=== PATIENT | male | born 1995 | race African-American/Black ===

== ENCOUNTER 2024-08-09 09:31 | Emergency (ER) | payer OTHER ==
[~2024-08-09] VITALS: Ht 185.4 cm; Wt 104.3 kg
[2024-08-09 10:24] LABS: BASOPHILS % (AUTO) 0.2 % (0.0-2.0); EOSINOPHILS % (AUTO) 0.2 % (0.0-6.0); HEMATOCRIT 46 % (39-51); HEMOGLOBIN 15.5 g/dL (13.5-17.5); LYMPHOCYTES # (AUTO) 1.4 K/uL (0.8-4.8); LYMPHOCYTES % (AUTO) 11.4 % (20.0-44.0); MEAN CORPUSCULAR HEMOGLOBIN 30 PG (26.0-33.0); MEAN CORPUSCULAR HGB CONC 34 g/dl (31.0-36.0); MEAN CORPUSCULAR VOLUME 87 fL (80-96); MONOCYTES # (AUTO) 0.5 K/uL (0.1-1.30); MONOCYTES % (AUTO) 3.8 % (2.0-12.0); NEUTROPHILS # (AUTO) 10.2 K/uL (1.8-8.9); NEUTROPHILS % (AUTO) 84.4 % (43.0-81.0); PLATELET COUNT (AUTO) 311 K/uL (150-450); RED BLOOD CELL COUNT(AUTO) 5.25 MIL/uL (4.5-6.0); RED CELL DISTRIBUTION WIDTH 12.6 % (11.5-15.0); WHITE BLOOD COUNT (AUTO) 12.1 K/uL (4.3-11.0)
[2024-08-09 10:33] LABS: CALCIUM, SERUM 9.5 mg/dL (8.5-10.1); CREATININE 1.3 mg/dL (0.6-1.3); POTASSIUM 3.8 mmol/L (3.5-5.1)
[2024-08-09 10:35] LABS: APPEARANCE,URINE CLEAR (CLEAR); BILIRUBIN,URINE NEGATIVE (NEGATIVE); BLOOD, URINE TRACE-INTA Ery/uL (NEGATIVE); COLOR,URINE YELLOW (YELLOW); KETONES,URINE NEGATIVE (NEGATIVE); LEUKOCYTE ESTERASE ,URINE NEGATIVE (NEGATIVE); NITRITE, URINE NEGATIVE (NEGATIVE); PROTEIN,URINE TRACE mg/dl (NEGATIVE); UGLUCOSE NEGATIVE (NEGATIVE); UROBILINOGEN,URINE 0.2 EU/dL (0.2)
[2024-08-09] MEDS ORDERED: ONDANSETRON HCL/PF 4 MG/2 ML VIAL ONE (10:35)
[2024-08-09] MEDS ORDERED: MAG HYDROX/AL HYDROX/SIMETH 30 ML UDC ONE (10:35)
[2024-08-09] MEDS ORDERED: LIDOCAINE VISCOUS 2% UD 15 ML UDC ONE (10:36)
[2024-08-09] MEDS ORDERED: FAMOTIDINE/PF INJ 20 MG/2 ML VIAL IV ONE (10:36)
[2024-08-09] MEDS: IV NS 0.9% 1,000 ML BAG IV ONE (10:40)
[2024-08-09 10:41] LABS: ALBUMIN 4.6 g/dL (3.4-5.0); BILIRUBIN,DIRECT 0.2 mg/dL (0.0-0.2); TOTAL PROTEIN, SERUM 7.9 g/dL (6.4-8.2)
[2024-08-09] MEDS: MAG HYDROX/AL HYDROX/SIMETH 30 ML UDC PO ONE (10:44)
[2024-08-09] MEDS: ONDANSETRON HCL/PF 4 MG/2 ML VIAL IVP ONE (10:45)
[2024-08-09] MEDS: LIDOCAINE VISCOUS 2% UD 15 ML UDC MM ONE (10:45)
[2024-08-09] MEDS: FAMOTIDINE/PF INJ 20 MG/2 ML VIAL IV ONE (10:45)
[2024-08-09 10:53] LABS: ADD URINE CULTURE NO; BACTERIA,URINE Rare /HPF (None Seen); RBC,URINE 0-2 /HPF (0-2); SQUAMOUS EPITHELIAL CELL,UR None Seen /HPF (None Seen); WBC,URINE 0-2 /HPF (0-3)
[2024-08-09] MEDS ORDERED: ONDA4TAB5 PO (13:05)
[2024-08-09] MEDS ORDERED: PANT20TA2 PO (13:05)
[2024-08-09 13:18] VITALS: BP 112/82; TEMP 98.6; O2SAT 97
== END 2024-08-09 13:18 | disposition home or self-care (01) ==
LOC: ER 09:36
DX: R10.13 Epigastric pain (principal); N50.82 Scrotal pain; Z87.19 Personal history of other diseases of the digestive system; Z60.2 Problems related to living alone
CPT/HCPCS: 99285; 74176; 96374; 96361; 96375; 76870; 85025; 80048; 83690; 80076; 81001; 36415; J3490; J2405; J7030; A4223